=== PATIENT | female | born 1995 | race Caucasian/White ===

== ENCOUNTER 2020-10-29 08:15 | Emergency (ER) | payer OTHER ==
[2020-10-29 09:05] LABS: BILIRUBIN 1+ mg/dL (NEGATIVE); BLOOD 3+ Ery/uL (NEGATIVE); CLARITY CLEAR (CLEAR); COLOR YELLOW (YELLOW); GLUCOSE (U) NORMAL (NORMAL); LEUKOCYTES NEGATIVE Leu/uL (NEGATIVE); NITRITE NEGATIVE (NEGATIVE); PROTEIN TRACE (LOW) mg/dL (NEGATIVE); SPECIFIC GRAVITY >=1.030 (1.001-1.030); UROBILINOGEN 0.2 mg/dL (0.2-1.0)
[2020-10-29 09:06] LABS: BASOPHIL 0.5 % (0-2); HCT 37.9 % (37.0-47.0); HGB 12.8 g/dl (12.5-16.0); LYMPHOCYTE 17.7 % (15-48); MCH 27.8 pg (25.0-31.0); MCHC 33.8 g/dL (32.0-36.0); MCV 82.4 fL (78.0-100.0); MONOCYTE 12.3 % (0-12); MPV 11.3 fL (6.0-9.5); NEUTROPHIL 68.2 % (41-80); NRBC 0; PLT 186 K/uL (150-400); RDW 13.2 % (11.5-14.0); WBC 5.9 K/uL (4.0-10.5)
[2020-10-29 09:11] LABS: BACTERIA 1+; SQUAMOUS EPITHELIAL CELLS 20-50
[2020-10-29 09:20] LABS: ALBUMIN 3.7 g/dL (3.4-5.0); BILIRUBIN - TOTAL 0.2 mg/dL (0.2-1.0); BUN/CREAT RATIO (CALC) 5.9 RATIO; CREATININE 0.51 mg/dL (0.51-0.95); GLOBULIN (CALCULATION) 3.6 g/dL; POTASSIUM 3.9 mmol/L (3.5-5.1); TOTAL PROTEIN 7.3 g/dL (6.4-8.2)
== END 2020-10-29 11:10 | disposition home or self-care (01) ==
LOC: FER 08:15
PROVIDERS: Emergency Medicine
DX: O20.0 Threatened abortion (principal); Z3A.11 11 weeks gestation of pregnancy; Z90.49 Acquired absence of other specified parts of digestive tract; Z88.2 Allergy status to sulfonamides
CPT/HCPCS: 36415; 76817; 80053; 81001; 84702; 85025; 86900; 86901; 87880

== ENCOUNTER 2021-05-10 20:38 | Emergency (ER) | payer OTHER | END 2021-05-10 23:40 | disposition left against medical advice (07) | LOC: FER 20:38 | DX: O99.891 Other specified diseases and conditions complicating pregnancy (principal); R07.89 Other chest pain; Z3A.39 39 weeks gestation of pregnancy; Z53.8 Procedure and treatment not carried out for other reasons | CPT/HCPCS: 93005 ==

== ENCOUNTER 2021-05-11 09:47 | Inpatient (IN) | payer OTHER ==
[2021-05-11 10:17] LABS: BILIRUBIN NEGATIVE (NEGATIVE); BLOOD NEGATIVE Ery/uL (NEGATIVE); CLARITY CLEAR (CLEAR); COLOR YELLOW (YELLOW); GLUCOSE (U) NORMAL (NORMAL); LEUKOCYTES 1+ Leu/uL (NEGATIVE); NITRITE NEGATIVE (NEGATIVE); PROTEIN TRACE (LOW) mg/dL (NEGATIVE); SPECIFIC GRAVITY 1.025 (1.001-1.030); UROBILINOGEN 0.2 mg/dL (0.2-1.0)
[2021-05-11 10:25] LABS: BACTERIA TRACE; MUCOUS MODERATE; SQUAMOUS EPITHELIAL CELLS 20-50
[2021-05-11 10:43] LABS: HCT 31.2 % (37.0-47.0); HGB 9.7 g/dl (12.5-16.0); MCHC 31.1 g/dL (32.0-36.0); MCV 74.1 fL (78.0-100.0); MPV 12.9 fL (6.0-9.5); RBC 4.21 M/uL (4.20-5.40); RDW 14.6 % (11.5-14.0); WBC 9.8 K/uL (4.0-10.5)
[2021-05-11 11:02] LABS: ALBUMIN 2.5 g/dL (3.4-5.0); BILIRUBIN - TOTAL 0.2 mg/dL (0.2-1.0); CREATININE 0.47 mg/dL (0.51-0.95); POTASSIUM 4.1 mmol/L (3.5-5.1); TOTAL PROTEIN 6.5 g/dL (6.4-8.2)
[2021-05-11 12:06] LABS: URIC ACID 3.6 mg/dL (2.6-6.2)
[2021-05-11 12:59] LABS: PROTEIN:CREATININE 0.35 RATIO; URINE CREATININE 140.77 mg/dL (29.00-226.00); URINE TOTAL PROTEIN-RANDOM 49.5 mg/dL (<11.9)
[2021-05-12 03:43] LABS: BILIRUBIN NEGATIVE (NEGATIVE); BLOOD 3+ Ery/uL (NEGATIVE); COLOR YELLOW (YELLOW); GLUCOSE (U) NORMAL (NORMAL); LEUKOCYTES NEGATIVE Leu/uL (NEGATIVE); NITRITE NEGATIVE (NEGATIVE); PROTEIN 1+ mg/dL (NEGATIVE); SPECIFIC GRAVITY 1.025 (1.001-1.030); UROBILINOGEN 0.2 mg/dL (0.2-1.0)
[2021-05-12 03:48] LABS: CLARITY SLIGHTLY HAZY (CLEAR)
[2021-05-12 03:50] LABS: URINARY RBC 20-50
[2021-05-12 03:51] LABS: BACTERIA TRACE
[2021-05-13 06:44] LABS: HCT 23.1 % (37.0-47.0); MCHC 30.3 g/dL (32.0-36.0); MCV 75.7 fL (78.0-100.0); RBC 3.05 M/uL (4.20-5.40); RDW 14.8 % (11.5-14.0); WBC 10.9 K/uL (4.0-10.5)
[2021-05-13] MEDS ORDERED: IBUPROFEN800 MG PO (08:13)
[2021-05-13] MEDS ORDERED: OXYCODONE-ACET1 EAC1 PO (08:29)
[2021-05-13] MEDS ORDERED: PRENATAL FORMU1 EACH PO (08:31)
[2021-05-13] MEDS ORDERED: COLACE100 MG PO (08:31)
== END 2021-05-13 16:22 | disposition home or self-care (01) | DRG 787 ==
LOC: FOD 09:47 → FOB 09:48 → FOD 10:08 → FOB 10:08
PROVIDERS: ADMIT Obstetrics & Gynecology
PROC: 3E0P7VZ Introduction of Hormone into Female Reproductive, Via Natural or Artificial Opening (ICD-10-PCS; 2021-05-12)
PROC: 10D00Z1 Extraction of Products of Conception, Low, Open Approach (ICD-10-PCS; principal; 2021-05-12 03:11)
DX: O36.63X0 Maternal care for excessive fetal growth, third trimester, not applicable or unspecified (principal); D62 Acute posthemorrhagic anemia; Z37.0 Single live birth; O13.4 Gestational [pregnancy-induced] hypertension without significant proteinuria, complicating childbirth; O75.89 Other specified complications of labor and delivery; O99.02 Anemia complicating childbirth; O99.214 Obesity complicating childbirth; Z20.822 Contact with and (suspected) exposure to COVID-19; Z3A.39 39 weeks gestation of pregnancy
CPT/HCPCS: 36415; 80053; 81001; 82570; 83615; 84112; 84156; 84550; J0456; J0595; J0690; J1885; J2274; J2370; J2916; J3010; J7050; J7120; U0002